=== PATIENT | male | born 1990 | race Caucasian/White ===

== ENCOUNTER 2020-12-23 12:45 | Emergency (ER) | payer SELFPAY ==
[2020-12-23 13:11] LABS: #Eosinphils 0.1 10x3/uL (0.0-0.5); #Monocytes 0.7 10x3/uL (0.0-1.1); #Neutrophils 8.4 10x3/uL (1.5-8.4); %Basophils 0.4 % (0.0-2.0); %Lymphocytes 18.6 % (18.0-47.0); %Monocytes 5.8 % (0.0-10.0); %Neutrophils 73.8 % (40.0-75.0); Hemoglobin 16.9 g/dL (13.5-17.5); Mean Corpuscular HGB CONC 35.4 g/dL (32.0-36.0); Mean Corpuscular Volume 84.9 fl (81.2-95.1); Mean Platelet Volume 11.5 fl (7.4-10.4); Platelet Count 217 10x3/uL (150-450); RBC Distribution Width 12.7 % (11.5-14.5); Red Blood Cell (RBC) Count 5.63 10x6/uL (4.32-5.72); White Blood Cell (WBC) Count 11.3 10x3/uL (3.5-10.5)
[2020-12-23 13:29] LABS: Acetaminophen Less than 6.0 mcg/mL (10.0-30.0); Alcohol Less than 10 mg/dL (Less than 10); Salicylate Less than 8.0 mg/dL (15.0-30.0)
[2020-12-23 13:30] LABS: ALT (SGPT) 30 U/L (8-55); AST (SGOT) 18 U/L (5-34); Albumin 4.1 g/dL (3.5-5.0); Alkaline Phosphatase 83 U/L (40-110); Anion Gap 18 mmol/L (10-20); BUN (Urea Nitrogen) 10 mg/dL (8.9-20.6); Bilirubin, Total 0.4 mg/dL (0.2-1.2); Calc. Creatinine Clearance 0 mL/min (70-130); Calcium 10.1 mg/dL (7.8-10.44); Carbon Dioxide 20 mmol/L (22-29); Chloride 100 mmol/L (98-107); Globulin 3.5 g/dL (2.4-3.5); Glucose 357 mg/dL (70-105); Potassium 4.3 mmol/L (3.5-5.1); Protein, Total 7.6 g/dL (6.0-8.3); Sodium 134 mmol/L (136-145)
[2020-12-23 14:45] LABS: Amphetamine Not Detected (NotDetected); Barbiturates Screen Not Detected (NotDetected); Benzodiazepine Screen Not Detected (NotDetected); Cocaine Metabolite Screen Not Detected (NotDetected); Methadone Not Detected (NotDetected); Methamphetamine Not Detected (NotDetected); Opiate Screen Not Detected (NotDetected); Oxycodone Screen Not Detected (NotDetected); Phencyclidine (PCP) Not Detected (NotDetected); THC/Cannabinoid Screen Not Detected (NotDetected); Tricyclic Screen Not Detected (NotDetected)
[2020-12-23 19:28] LABS: SARS-CoV-2 NAA Rapid Test Not Detected (NotDetected)
[2020-12-25] MEDS ORDERED: Nicotine 14 MG PATCH ONE (08:09)
== END 2020-12-25 19:34 | disposition home or self-care (01) ==
LOC: CSHERS 12:45
DX: T45.0X2A Poisoning by antiallergic and antiemetic drugs, intentional self-harm, initial encounter (principal); T46.4X2A Poisoning by angiotensin-converting-enzyme inhibitors, intentional self-harm, initial encounter; R00.0 Tachycardia, unspecified; I10 Essential (primary) hypertension; E11.9 Type 2 diabetes mellitus without complications; F17.210 Nicotine dependence, cigarettes, uncomplicated; Z20.822 Contact with and (suspected) exposure to COVID-19; Z79.84 Long term (current) use of oral hypoglycemic drugs; Z79.899 Other long term (current) drug therapy
CPT/HCPCS: 80053; 80306; 80307; 84443; 85025; 93005; U0002

== ENCOUNTER 2021-07-08 17:13 | Inpatient (IN) | payer SELFPAY ==
[~2021-07-08 17:13] MED LIST: Iopamidol 300 61% 100 ML VIAL FS ONE
[2021-07-08 17:56] LABS: #Eosinphils 0.1 10x3/uL (0.0-0.5); #Monocytes 0.5 10x3/uL (0.0-1.1); #Neutrophils 7.3 10x3/uL (1.5-8.4); %Basophils 0.5 % (0.0-2.0); %Eosinophils 1.6 % (0.0-6.0); %Lymphocytes 7.1 % (18.0-47.0); %Monocytes 5.3 % (0.0-10.0); Mean Corpuscular HGB CONC 37.3 g/dL (32.0-36.0); Mean Corpuscular Hemoglobin 31.1 pg (27.0-33.0); Mean Corpuscular Volume 83.4 fl (81.2-95.1); Mean Platelet Volume 11.5 fl (7.4-10.4); Platelet Count 200 10x3/uL (150-450); Red Blood Cell (RBC) Count 5.79 10x6/uL (4.32-5.72); White Blood Cell (WBC) Count 8.6 10x3/uL (3.5-10.5)
[2021-07-08 18:25] LABS: ALT (SGPT) 31 U/L (8-55); AST (SGOT) 28 U/L (5-34); Albumin 4.3 g/dL (3.5-5.0); Alkaline Phosphatase 93 U/L (40-110); Anion Gap 21 mmol/L (10-20); BUN (Urea Nitrogen) 10 mg/dL (8.9-20.6); Bilirubin, Total 0.4 mg/dL (0.2-1.2); Calc. Creatinine Clearance 0 mL/min (70-130); Calcium 9.5 mg/dL (7.8-10.44); Carbon Dioxide 19 mmol/L (22-29); Chloride 95 mmol/L (98-107); Globulin 4.2 g/dL (2.4-3.5); Glucose 355 mg/dL (70-105); Potassium 4.5 mmol/L (3.5-5.1); Protein, Total 8.5 g/dL (6.0-8.3); Sodium 130 mmol/L (136-145)
[2021-07-08 20:08] LABS: SARS-CoV-2 NAA Rapid Test DETECTED (NotDetected)
[2021-07-08] MEDS ORDERED: Ketorolac Tromethamine 30 MG/ML VIAL ONE (21:38)
[2021-07-09] MEDS ORDERED: Morphine 4 MG/ML VIAL ONE (00:28)
[2021-07-09] MEDS ORDERED: Ondansetron ODT 4 MG TAB PO PRN (01:47)
[2021-07-09] MEDS ORDERED: Senokot S 8.6-50 MG TAB PO PRN (01:47)
[2021-07-09] MEDS ORDERED: Ondansetron PF 4 MG/2 ML Vial IVP PRN (01:47)
[2021-07-09] MEDS ORDERED: Calcium Carbonate 500 MG ChewTAB PO PRN (01:47)
[2021-07-09] MEDS ORDERED: Sodium Chloride 0.9% 1,000 ML IV SCH (02:00)
[2021-07-09] MEDS: HYDROcodone/Acetaminophen 7.5/325 mg Tablet PO PRN (02:20)
[2021-07-09 04:12] LABS: #Monocytes 0.6 10x3/uL (0.0-1.1); #Neutrophils 4.8 10x3/uL (1.5-8.4); %Basophils 0.5 % (0.0-2.0); %Eosinophils 0.7 % (0.0-6.0); %Lymphocytes 9.7 % (18.0-47.0); %Monocytes 9.4 % (0.0-10.0); Hemoglobin 15.9 g/dL (13.5-17.5); Mean Corpuscular HGB CONC 35.7 g/dL (32.0-36.0); Mean Corpuscular Hemoglobin 29.8 pg (27.0-33.0); Mean Corpuscular Volume 83.5 fl (81.2-95.1); Mean Platelet Volume 11.7 fl (7.4-10.4); Platelet Count 158 10x3/uL (150-450); Red Blood Cell (RBC) Count 5.34 10x6/uL (4.32-5.72); White Blood Cell (WBC) Count 6.1 10x3/uL (3.5-10.5)
[2021-07-09] MEDS: Acetaminophen 325 MG TAB PO PRN ×3 (04:12→17:50)
[2021-07-09 04:38] LABS: Anion Gap 27 mmol/L (10-20); BUN (Urea Nitrogen) 14 mg/dL (8.9-20.6); CRP (Inflammatory) 1.87 mg/dL (= or < 0.5); Calc. Creatinine Clearance 261 mL/min (70-130); Calcium 9.5 mg/dL (7.8-10.44); Carbon Dioxide 10 mmol/L (22-29); Chloride 98 mmol/L (98-107); Glucose 255 mg/dL (70-105); Magnesium 1.7 mg/dL (1.6-2.6); Sodium 131 mmol/L (136-145)
[2021-07-09 04:44] LABS: Troponin I 0.011 ng/mL (< 0.028)
[2021-07-09] MEDS ORDERED: Dextrose 5% in Water 1,000 ML IV PRN (06:37)
[2021-07-09] MEDS ORDERED: Dextrose 50% Abboject 50 ML SYRINGE SLOW IVP PRN (06:37)
[2021-07-09 07:05] VITALS: BMI 42.1
[2021-07-09] MEDS ORDERED: HumaLOG 300 UNITS/3 ML VIAL SC SCH (07:15)
[2021-07-09] MEDS: metFORMIN 500 MG TAB PO SCH ×2 (07:20→17:50)
[2021-07-09] MEDS: Ascorbic Acid 500 mg Chewable Tablet PO SCH (08:30)
[2021-07-09] MEDS: Amlodipine 5 MG TAB PO SCH (08:31)
[2021-07-09] MEDS: Cholecalciferol 1,000 UNITS (25 MCG) TAB PO SCH (08:31)
[2021-07-09] MEDS: Zinc Sulfate 220 MG CAP PO SCH (08:31)
[2021-07-09] MEDS: Aspirin 81 mg Enteric Coated Tablet PO SCH (08:31)
[2021-07-09] MEDS: Lantus 1000 UNITS/10 ML VIAL SC SCH (08:50)
[2021-07-09] MEDS ORDERED: Enoxaparin Sodium 40 MG/0.4 ML SYRINGE SC SCH (09:00)
[2021-07-09] MEDS ORDERED: REMDESIVIR 200 MG in Sodium Chloride 0.9% 250 ML 210 ML IV SCH (09:00)
[2021-07-09 09:12] LABS: Anion Gap 24 mmol/L (10-20); BUN (Urea Nitrogen) 13 mg/dL (8.9-20.6); Calc. Creatinine Clearance 258 mL/min (70-130); Calcium 9.3 mg/dL (7.8-10.44); Carbon Dioxide 13 mmol/L (22-29); Chloride 99 mmol/L (98-107); Glucose 243 mg/dL (70-105); Sodium 132 mmol/L (136-145)
[2021-07-09] MEDS: Sodium Chloride 0.9% 1,000 ML IV SCH ×3 (11:19→20:24)
[2021-07-09] MEDS ORDERED: NIRMATRELVIR 150 MG/RITONAVIR 100 MG TABLET PO SCH ×2 (12:00)
[2021-07-09] MEDS: HumaLOG 300 UNITS/3 ML VIAL SC PRN ×3 (13:11→20:36)
[2021-07-09] MEDS ORDERED: REMDESIVIR 100 MG in Sodium Chloride 0.9% 250 ML 230 ML IV SCH (14:00)
[2021-07-09] MEDS ORDERED: REMDESIVIR 200 MG, Admixture Fee 1 EACH in Sodium Chloride 0.9% 250 ML 210 ML IV SCH (14:00)
[2021-07-09] MEDS ORDERED: Dexamethasone 4 mg/ml Vial SLOW IVP SCH (14:30)
[2021-07-09 14:47] LABS: Troponin I 0.013 ng/mL (< 0.028)
[2021-07-09] MEDS: Nicotine 21 MG PATCH TOP SCH (17:50)
[2021-07-09] MEDS: Enoxaparin Sodium 40 MG/0.4 ML SYRINGE SC SCH (20:24)
[2021-07-10] MEDS: Sodium Chloride 0.9% 1,000 ML IV SCH ×3 (02:45→18:42)
[2021-07-10] MEDS: HumaLOG 300 UNITS/3 ML VIAL SC PRN ×4 (06:15→21:52)
[2021-07-10 08:55] LABS: Anion Gap 20 mmol/L (10-20); BUN (Urea Nitrogen) 10 mg/dL (8.9-20.6); Calc. Creatinine Clearance 298 mL/min (70-130); Calcium 8.6 mg/dL (7.8-10.44); Carbon Dioxide 15 mmol/L (22-29); Chloride 103 mmol/L (98-107); Glucose 256 mg/dL (70-105); Potassium 3.9 mmol/L (3.5-5.1); Sodium 134 mmol/L (136-145)
[2021-07-10] MEDS ORDERED: REMDESIVIR 100 MG in Sodium Chloride 0.9% 250 ML 230 ML IV SCH (09:00)
[2021-07-10] MEDS: Enoxaparin Sodium 40 MG/0.4 ML SYRINGE SC SCH ×2 (09:32→20:23)
[2021-07-10] MEDS: metFORMIN 500 MG TAB PO SCH ×2 (09:32→17:30)
[2021-07-10] MEDS: Ascorbic Acid 500 mg Chewable Tablet PO SCH (09:32)
[2021-07-10] MEDS: Amlodipine 5 MG TAB PO SCH (09:32)
[2021-07-10] MEDS: Aspirin 81 mg Enteric Coated Tablet PO SCH (09:32)
[2021-07-10] MEDS: Zinc Sulfate 220 MG CAP PO SCH (09:32)
[2021-07-10] MEDS: Cholecalciferol 1,000 UNITS (25 MCG) TAB PO SCH (09:32)
[2021-07-10] MEDS: Dexamethasone 4 mg/ml Vial SLOW IVP SCH (09:33)
[2021-07-10] MEDS: Lantus 1000 UNITS/10 ML VIAL SC SCH (09:53)
[2021-07-10] MEDS: REMDESIVIR 100 MG in Sodium Chloride 0.9% 250 ML 230 ML IV SCH (15:00)
[2021-07-10] MEDS: Nicotine 21 MG PATCH TOP SCH (17:30)
[2021-07-10] MEDS: HYDROcodone/Acetaminophen 7.5/325 mg Tablet PO PRN (22:18)
[2021-07-11 04:45] LABS: #Monocytes 0.4 10x3/uL (0.0-1.1); #Neutrophils 2.6 10x3/uL (1.5-8.4); %Basophils 0.2 % (0.0-2.0); %Lymphocytes 36.6 % (18.0-47.0); %Monocytes 7.8 % (0.0-10.0); %Neutrophils 55.2 % (40.0-75.0); Mean Corpuscular HGB CONC 36.2 g/dL (32.0-36.0); Mean Corpuscular Hemoglobin 30.5 pg (27.0-33.0); Mean Corpuscular Volume 84.2 fl (81.2-95.1); Mean Platelet Volume 11.8 fl (7.4-10.4); Platelet Count 173 10x3/uL (150-450); RBC Distribution Width 13.3 % (11.5-14.5); Red Blood Cell (RBC) Count 5.25 10x6/uL (4.32-5.72); White Blood Cell (WBC) Count 4.7 10x3/uL (3.5-10.5)
[2021-07-11 04:52] LABS: Anion Gap 23 mmol/L (10-20); BUN (Urea Nitrogen) 15 mg/dL (8.9-20.6); CRP (Inflammatory) 3.59 mg/dL (= or < 0.5); Calc. Creatinine Clearance 278 mL/min (70-130); Calcium 9.3 mg/dL (7.8-10.44); Carbon Dioxide 13 mmol/L (22-29); Chloride 105 mmol/L (98-107); Glucose 271 mg/dL (70-105); Sodium 137 mmol/L (136-145)
[2021-07-11] MEDS: Sodium Chloride 0.9% 1,000 ML IV SCH ×4 (05:04→23:35)
[2021-07-11] MEDS: HYDROcodone/Acetaminophen 7.5/325 mg Tablet PO PRN ×2 (05:04→20:36)
[2021-07-11] MEDS: HumaLOG 300 UNITS/3 ML VIAL SC PRN ×4 (05:06→23:35)
[2021-07-11] MEDS: Ascorbic Acid 500 mg Chewable Tablet PO SCH (08:04)
[2021-07-11] MEDS: Aspirin 81 mg Enteric Coated Tablet PO SCH (08:04)
[2021-07-11] MEDS: Amlodipine 5 MG TAB PO SCH (08:04)
[2021-07-11] MEDS: Cholecalciferol 1,000 UNITS (25 MCG) TAB PO SCH (08:04)
[2021-07-11] MEDS: metFORMIN 500 MG TAB PO SCH ×2 (08:04→17:32)
[2021-07-11] MEDS: Zinc Sulfate 220 MG CAP PO SCH (08:04)
[2021-07-11] MEDS: Dexamethasone 4 mg/ml Vial SLOW IVP SCH (08:04)
[2021-07-11] MEDS: Enoxaparin Sodium 40 MG/0.4 ML SYRINGE SC SCH ×2 (08:04→20:36)
[2021-07-11] MEDS: Lantus 1000 UNITS/10 ML VIAL SC SCH (08:05)
[2021-07-11 12:38] LABS: Lactic Acid 1.3 mmol/L (0.5-2.2)
[2021-07-11] MEDS: REMDESIVIR 100 MG in Sodium Chloride 0.9% 250 ML 230 ML IV SCH (14:30)
[2021-07-11] MEDS: Nicotine 21 MG PATCH TOP SCH (17:32)
[2021-07-12] MEDS: HYDROcodone/Acetaminophen 7.5/325 mg Tablet PO PRN ×3 (03:18→13:55)
[2021-07-12 04:59] LABS: #Monocytes 0.4 10x3/uL (0.0-1.1); #Neutrophils 2.8 10x3/uL (1.5-8.4); %Basophils 0.4 % (0.0-2.0); %Eosinophils 0.8 % (0.0-6.0); %Lymphocytes 37.5 % (18.0-47.0); %Monocytes 7.3 % (0.0-10.0); %Neutrophils 53.4 % (40.0-75.0); Mean Corpuscular HGB CONC 35.6 g/dL (32.0-36.0); Mean Corpuscular Hemoglobin 30.2 pg (27.0-33.0); Mean Corpuscular Volume 84.9 fl (81.2-95.1); Mean Platelet Volume 11.3 fl (7.4-10.4); Platelet Count 163 10x3/uL (150-450); RBC Distribution Width 13.1 % (11.5-14.5); Red Blood Cell (RBC) Count 4.96 10x6/uL (4.32-5.72); White Blood Cell (WBC) Count 5.3 10x3/uL (3.5-10.5)
[2021-07-12] MEDS: Sodium Chloride 0.9% 1,000 ML IV SCH (05:14)
[2021-07-12 05:15] LABS: Anion Gap 25 mmol/L (10-20); BUN (Urea Nitrogen) 13 mg/dL (8.9-20.6); CRP (Inflammatory) 2.08 mg/dL (= or < 0.5); Calc. Creatinine Clearance 290 mL/min (70-130); Calcium 8.9 mg/dL (7.8-10.44); Carbon Dioxide 10 mmol/L (22-29); Chloride 103 mmol/L (98-107); Glucose 292 mg/dL (70-105); Potassium 3.6 mmol/L (3.5-5.1); Sodium 134 mmol/L (136-145)
[2021-07-12] MEDS: HumaLOG 300 UNITS/3 ML VIAL SC PRN ×3 (05:15→20:52)
[2021-07-12] MEDS: metFORMIN 500 MG TAB PO SCH ×2 (08:40→16:54)
[2021-07-12] MEDS: Zinc Sulfate 220 MG CAP PO SCH (08:40)
[2021-07-12] MEDS: Dexamethasone 4 mg/ml Vial SLOW IVP SCH (08:40)
[2021-07-12] MEDS: Enoxaparin Sodium 40 MG/0.4 ML SYRINGE SC SCH ×2 (08:40→20:51)
[2021-07-12] MEDS: Ascorbic Acid 500 mg Chewable Tablet PO SCH (08:41)
[2021-07-12] MEDS: Amlodipine 5 MG TAB PO SCH (08:41)
[2021-07-12] MEDS: Lantus 1000 UNITS/10 ML VIAL SC SCH (08:41)
[2021-07-12] MEDS: Cholecalciferol 1,000 UNITS (25 MCG) TAB PO SCH (08:41)
[2021-07-12] MEDS: Aspirin 81 mg Enteric Coated Tablet PO SCH (08:41)
[2021-07-12] MEDS: Sodium Bicarbonate 75 MEQ in Dextrose 5% in Water 500 ML IV SCH ×2 (10:13→18:34)
[2021-07-12 11:23] LABS: Base Excess (BEa) -0.7 mEq/L (-2.0 to +3.0); CO2 Tension 35.5 mmHg (35.0-45.0); Calcium, Ionized (arterial) 1.19 mmol/L (1.12-1.30); Carboxyhemoglobin (COHb) 0.7 gm% (0.0-3.0); Hemoglobin (Hb) 15.2 g/dL (14.0-18.0); O2 Tension (PaO2), arterial 73.2 mmHg (80.0-100.0); Potassium - ABG Lab 3.9 mmol/L (3.70-5.30); Puncture Site RRA; pH, Arterial 7.43 (7.35-7.45)
[2021-07-12 11:26] LABS: ALV-art Gradient 32.155 mmHg (0-20)
[2021-07-12] MEDS: REMDESIVIR 100 MG in Sodium Chloride 0.9% 250 ML 230 ML IV SCH (14:07)
[2021-07-12 14:34] LABS: Bilirubin Neg (Negative); Blood, Urine Negative (Negative); Glucose, Urine (Dipstick) >=1000 mg/dL (Negative); Ketone, Urine 5 mg/dL (Negative); Leukocyte Negative (Negative); Nitrite Negative (Negative); Protein, Urine (Dipstick) 30 mg/dl (Neg-Trace); Specific Gravity, Urine 1.015 (1.002-1.036); Urobilinogen Normal mg/dL (Less than 2)
[2021-07-12 14:41] LABS: Creatinine, Urine 22.66 mg/dL (63-166)
[2021-07-12 14:42] LABS: Clarity Clear (Clear)
[2021-07-12 14:55] LABS: Bacteria/HPF None Seen HPF (None Seen); RBC/HPF None Seen HPF (0-3); Squamous Epithelial None Seen HPF (0-3); WBC/HPF None Seen HPF (0-3)
[2021-07-12] MEDS: Nicotine 21 MG PATCH TOP SCH (16:54)
[2021-07-12 20:08] LABS: Potassium, Urine 10.8 mmol/L
[2021-07-13] MEDS: HYDROcodone/Acetaminophen 7.5/325 mg Tablet PO PRN ×2 (00:37→05:47)
[2021-07-13] MEDS: HumaLOG 300 UNITS/3 ML VIAL SC PRN ×3 (05:48→16:49)
[2021-07-13 08:08] LABS: Anion Gap 25 mmol/L (10-20); BUN (Urea Nitrogen) 12 mg/dL (8.9-20.6); Calc. Creatinine Clearance 286 mL/min (70-130); Calcium 9.1 mg/dL (7.8-10.44); Carbon Dioxide 16 mmol/L (22-29); Chloride 102 mmol/L (98-107); Glucose 278 mg/dL (70-105); Potassium 3.3 mmol/L (3.5-5.1); Sodium 140 mmol/L (136-145)
[2021-07-13] MEDS: Zinc Sulfate 220 MG CAP PO SCH (08:14)
[2021-07-13] MEDS: Ascorbic Acid 500 mg Chewable Tablet PO SCH (08:14)
[2021-07-13] MEDS: Aspirin 81 mg Enteric Coated Tablet PO SCH (08:14)
[2021-07-13] MEDS: Enoxaparin Sodium 40 MG/0.4 ML SYRINGE SC SCH (08:14)
[2021-07-13] MEDS: metFORMIN 500 MG TAB PO SCH (08:14)
[2021-07-13] MEDS: Amlodipine 5 MG TAB PO SCH (08:14)
[2021-07-13] MEDS: Dexamethasone 4 mg/ml Vial SLOW IVP SCH (08:14)
[2021-07-13] MEDS: Cholecalciferol 1,000 UNITS (25 MCG) TAB PO SCH (08:14)
[2021-07-13] MEDS: Lantus 1000 UNITS/10 ML VIAL SC SCH (08:15)
[2021-07-13] MEDS ORDERED: Potassium Chloride 20 MEQ TAB PO SCH (09:00)
[2021-07-13] MEDS: Sodium Bicarbonate Tab 325 MG TAB PO SCH ×2 (09:39→13:49)
[2021-07-13] MEDS: HumaLOG 300 UNITS/3 ML VIAL SC SCH ×2 (11:37→16:49)
[2021-07-13 12:34] VITALS: BP 157/88; TEMP 98.6
[2021-07-13] MEDS: REMDESIVIR 100 MG in Sodium Chloride 0.9% 250 ML 230 ML IV SCH (13:49)
[2021-07-15 11:54] LABS: ANA Symphony (Qualitative) Negative (Negative); ANA Symphony (Quantitative) 0.2 Ratio (< 0.7 Negative); dsDNA IgG Antibody 1.5 IU/mL (<10 Negative)
== END 2021-07-13 16:51 | disposition home or self-care (01) | DRG 871 ==
LOC: CSHERS 17:13 → CSHTELE 07-09 00:46 → OBSVTOIN 07-10 11:56
PROVIDERS: ADMIT Family Medicine; ATTEND Internal Medicine
PROC: XW033E5 Introduction of Remdesivir Anti-infective into Peripheral Vein, Percutaneous Approach, New Technology Group 5 (ICD-10-PCS; principal; 2021-07-10)
PROC: 8E0ZXY6 Isolation (ICD-10-PCS; 2021-07-10)
DX: A41.9 Sepsis, unspecified organism (principal); U07.1 COVID-19; J96.01 Acute respiratory failure with hypoxia; J12.82 Pneumonia due to coronavirus disease 2019; E87.2 Acidosis; E87.1 Hypo-osmolality and hyponatremia; E87.3 Alkalosis; Z68.41 Body mass index [BMI] 40.0-44.9, adult; I10 Essential (primary) hypertension; E78.5 Hyperlipidemia, unspecified; E11.65 Type 2 diabetes mellitus with hyperglycemia; F17.210 Nicotine dependence, cigarettes, uncomplicated; F12.90 Cannabis use, unspecified, uncomplicated; E66.01 Morbid (severe) obesity due to excess calories; D75.1 Secondary polycythemia; M54.89 Other dorsalgia; K76.0 Fatty (change of) liver, not elsewhere classified; R16.0 Hepatomegaly, not elsewhere classified; E86.0 Dehydration; F31.9 Bipolar disorder, unspecified; Z79.899 Other long term (current) drug therapy; Z79.84 Long term (current) use of oral hypoglycemic drugs; Z83.3 Family history of diabetes mellitus; Z82.5 Family history of asthma and other chronic lower respiratory diseases
CPT/HCPCS: 36415; 36416; 36600; 71045; 71260; 80048; 80053; 81001; 82010; 82436; 82570; 82728; 82805; 83605; 83735; 83930; 83935; 84133; 84156; 84300; 84484; 84550; 85025; 85379; 86038; 86140; 86225; 93005; 93010; 94760; 96372; 96374; 96375; 96376; G0378; J0248; J1100; J1650; J1815; J1885; J2270; J7050; J7070; Q9967